=== PATIENT | female | born 1930 | race African-American/Black ===

== ENCOUNTER 2017-05-30 23:04 | Observation (INO) | payer MEDICARE, MEDICAID ==
[2017-05-30 23:37] LABS: #Eosinphils 0.2 thou/uL (0.0-0.7); #Lymphocytes 2.4 thou/uL (1.20-3.40); #Monocytes 1.4 thou/uL (0.11-0.59); #Neutrophils 5.8 thou/uL (1.40-6.50); %Basophils 0.3 % (0.0-1.0); %Eosinophils 2.2 % (0.0-10.0); %Lymphocytes 24.4 % (21.0-51.0); %Monocytes 14.5 % (0.0-10.0); Hematocrit 36.6 % (36.0-47.0); Mean Platelet Volume 9.1 fL (7.4-10.4); Red Blood Cell (RBC) Count 3.94 mill/uL (4.20-5.40); White Blood Cell (WBC) Count 9.9 thou/uL (4.8-10.8)
--- NOTE | 2017-05-30 23:55 | RAD ---
FRONTAL RADIOGRAPH CHEST PORTABLE UPRIGHT 05/30/17 COMPARISON: 12/31/16 HISTORY: Chest pain radiating into the left flank and abdomen. FINDINGS: There is a rounded density in the cardiophrenic angle on the left suggesting hiatal hernia. No pneum othorax, pleural fluid, focal consolidation or alveolar edema. There is elevation of the right rima diaphragm. IMPRESSION: No acute findings. POS: [facility]
[2017-05-30 23:59] LABS: ALT (SGPT) 20 U/L (8-55); AST (SGOT) 28 U/L (5-34); Alkaline Phosphatase 50 U/L (40-150); Anion Gap 16 mmol/L (10-20); BUN (Urea Nitrogen) 26 mg/dL (9.8-20.1); Bilirubin, Total 0.2 mg/dL (0.2-1.2); CK (CPK) 162 U/L (29-168); Calc. Creatinine Clearance 0 mL/min (70-130); Calcium 9.3 mg/dL (7.8-10.44); Carbon Dioxide 27 mmol/L (23-31); Chloride 100 mmol/L (98-107); Estimated GFR-MDRD 49; Globulin 2.9 g/dL (2.4-3.5); Lipase 27 U/L (8-78); Protein, Total 6.7 g/dL (6.0-8.3)
[2017-05-31 00:02] LABS: Troponin I Less than 0.010 ng/mL (< 0.028)
[2017-05-31] MEDS ORDERED: Nitroglycerin 0.4 MG TAB (25 Tab Bottle) ONE (01:02)
[2017-05-31] MEDS ORDERED: Nitroglycerin 2% Ointment 1 INCH/1 GM Packet ONE (01:02)
[2017-05-31] MEDS ORDERED: cefTRIAXone\\ROCEPHIN 1 GM VIAL ONE (01:31)
[2017-05-31] MEDS ORDERED: Azithromycin 500 MG VIAL ONE (02:09)
[2017-05-31 02:55] LABS: Troponin I 0.015 ng/mL (< 0.028)
[2017-05-31] MEDS ORDERED: Ondansetron HCl/PF 4 MG/2 ML Vial IVP PRN (03:13)
[2017-05-31] MEDS ORDERED: Ondansetron ODT 4 MG TAB SL PRN (03:13)
[2017-05-31] MEDS ORDERED: Acetaminophen 325 MG TAB PO PRN (03:13)
[2017-05-31 04:02] VITALS: BMI 35.2
[2017-05-31 06:52] LABS: Troponin I 0.015 ng/mL (< 0.028)
--- NOTE | 2017-05-31 07:57 | ULT ---
PRELIMINARY REPORT/[facility]/EMERGENCY AFTER HOURS PROCEDURE: EXAM: US Duplex Right Lower Extremity Veins CLINICAL HISTORY: 87 years old, female; Pain and signs and symptoms; Edema, localized; Lower extremity, right; Leg, up per; Prior surgery; Surgery date: 6+ months; Surgery type: Rt knee replacement - yrs ago TECHNIQUE: Real-time ultrasound scan of the veins of the right lower extremity with color Doppler flow, spectra l waveform analysis and compression. COMPARISON: No relevant prior studies available. FINDINGS: Deep veins: Unremarkable. No DVT in the visualized common femoral, femoral, proximal deep femoral or popliteal veins. The veins are compressible with normal color flow and augmentation. Superficial veins: Unremarkable. No thrombus in the visualized great saphenous vein. Soft tissues: No acute findings. No popliteal cyst. IMPRESSION: No deep venous thrombosis of the right lower extremity. Thank you for allowing us to participate in the care of your patient. Dictated and Authenticated by: Jon Barlow MD 05/31/2017 1:23 AM Central Time ([place] \T\ [place]) FINAL REPORT EMERGENCY AFTER HOURS VENOUS DOPPLER ULTRASOUND RIGHT LOWER EXTREMITY: Date: 05/31/17 HISTORY: 87-year-old with right lower extremity pain, localized edema. Previous history of surgery 6 months a go. TECHNIQUE: Multiple longitudinal and transverse images of the right lower extremity venous system obtained usin g a multihertz linear array transducer. Real-time, color flow, and spectral waveform Doppler analysi s was used to evaluate the right lower extremity venous system. FINDINGS: Areas of soft tissue edema seen in the region of the popliteal region. The right common femoral, sup erficial femoral, femora profunda, popliteal, posterior tibial, post-trifurcation, and greater saphe nous veins are all patent. No evidence of right lower extremity deep venous thrombosis seen. IMPRESSION: No evidence of right lower extremity deep venous thrombosis seen. I agree with the preliminary report given by Abby. POS: [facility]
--- NOTE | 2017-05-31 08:00 | CT ---
PRELIMINARY REPORT/[facility]/EMERGENCY AFTER HOURS PROCEDURE: EXAM: CT Angiography Chest With Intravenous Contrast CLINICAL HISTORY: 87 years old, female; Pain; Chest pain; R/O PE TECHNIQUE: Axial computed tomographic angiography images of the chest with intravenous contrast using pulmonary embolism protocol. Coronal reformatted images were created and reviewed. Oblique reformatted images were created and reviewed. CONTRAST: 100 mL of ISOVUE administered intravenously. COMPARISON: No relevant prior studies available. FINDINGS: Pulmonary arteries: No evidence of pulmonary embolism. Aorta: Normal caliber thoracic aorta without dissection or aneurysm. Lungs: Areas of atelectasis and/or consolidation within the inferior right lower lobe and right midd le lobe adjacent to the left hemidiaphragm. Areas of linear parenchymal scarring or subsegmental col lapse / atelectasis in each lung. Moderate hiatal hernia with adjacent compressive atelectasis within the medial left lower lobe. Pleural space: No pneumothorax. No pleural fluid collection. Heart: Coronary artery and aortic / mitral valve annulus calcification. No pericardial effusion. No evidence of RV dysfunction. Bones/joints: Spinal and shoulder degenerative changes. No acute fracture. No dislocation. Soft tissues: Unremarkable. Lymph nodes: No pathologically enlarged lymph nodes. Gallbladder and bile ducts: Status post cholecystectomy. Kidneys and ureters: Renal cysts. IMPRESSION: 1. No evidence of pulmonary embolism. 2. Areas of atelectasis and/or consolidation within the inferior right lower lobe and right middle l obe adjacent to the left hemidiaphragm. 3. Areas of linear parenchymal scarring or subsegmental collapse / atelectasis in each lung. 4. Moderate hiatal hernia with adjacent compressive atelectasis within the medial left lower lobe. Thank you for allowing us to participate in the care of your patient. Dictated and Authenticated by: Jon Barlow MD 05/31/2017 1:01 AM Central Time ([place] \T\ [place]) FINAL REPORT EMERGENCY AFTER HOURS CT PULMONARY ANGIOGRAM WITH IV CONTRAST AND 3D POSTPROCESSING: Date: 05/31/17 IMPRESSION: I agree with the preliminary report given by Abby. POS: [facility]
[2017-05-31] MEDS ORDERED: Mag-Al Plus 1200 MG/1200 MG/120 MG/30 ML UDCUP PO PRN (08:59)
[2017-05-31] MEDS ORDERED: Aspirin 325 MG TAB PO SCH (09:00)
[2017-05-31] MEDS: Pantoprazole 40 MG GRANULES PACKET PO SCH (09:07)
[2017-05-31] MEDS ORDERED: cloNIDine HCl 0.1 MG TAB PO PRN (09:58)
[2017-05-31] MEDS ORDERED: Nitroglycerin 0.4 MG TAB (25 Tab Bottle) SL PRN (09:58)
[2017-05-31] MEDS ORDERED: ISOVUE-370 76%-LOCM 1 ML ONE (10:41)
--- NOTE | 2017-05-31 10:48 | ULT ---
ULTRASOUND WITH DOPPLER DUPLEX VENOUS LOWER EXTREMITY LEFT: HISTORY: 87-year-old female with left lower extremity pain. TECHNIQUE: Color flow Doppler, spectral waveform analysis of pulsed Doppler, and doherty-scale imaging with compre ssion and augmentation, were used to evaluate the left common femoral, femoral, popliteal, posterior tibial, and superficial femoral, veins; and the proximal portions of the profunda femoral and great er saphenous, veins. FINDINGS: There is normal compressibility, demonstration of blood flow by color Doppler and pulsed Doppler, an d response to augmentation, in all interrogated veins. IMPRESSION: Negative. No deep vein thrombosis in the left lower extremity. simeon POS: [facility]
--- NOTE | 2017-05-31 11:02 | RAD ---
TWO VIEWS LEFT HIP: History: Hip pain. FINDINGS: AP and frogleg views of the left hip obtained. There is no evidence of left hip fractures, subluxati ons, or bony lesions. IMPRESSION: Normal AP and frogleg views left hip. POS: [facility]
[2017-05-31] MEDS ORDERED: Gabapentin 300 MG CAP PO SCH (15:00)
[2017-05-31] MEDS: Gabapentin 100 MG CAP PO SCH ×2 (16:01→20:10)
[2017-05-31] MEDS ORDERED: traMADol HCl 50 MG TAB PO PRN ×2 (16:24→16:30)
[2017-05-31] MEDS: Morphine Sulfate 2 MG/ML SYRINGE SLOW IVP PRN (20:11)
[2017-06-01] MEDS: Morphine Sulfate 2 MG/ML SYRINGE SLOW IVP PRN (06:16)
[2017-06-01] MEDS ORDERED: ANASTROZOLE 1 MG PO SCH (09:00)
[2017-06-01] MEDS: Furosemide 20 MG TAB PO SCH (09:04)
[2017-06-01] MEDS: Atenolol 25 MG TAB PO SCH (09:04)
[2017-06-01] MEDS: Fish Oil 1,000 MG CAP PO SCH (09:04)
[2017-06-01] MEDS: Pantoprazole 40 MG GRANULES PACKET PO SCH (09:05)
[2017-06-01] MEDS: Gabapentin 100 MG CAP PO SCH ×3 (09:05→20:19)
[2017-06-01] MEDS: Anastrozole 1 MG TAB PO SCH (09:05)
[2017-06-01] MEDS: cloNIDine HCl 0.1 MG TAB PO SCH (09:05)
[2017-06-01] MEDS ORDERED: Acetaminophen/Codeine 30-300mg Tablet PO PRN (13:47)
--- NOTE | 2017-06-01 13:51 | PDOC.PN ---
- Subjective Encounter Start Date: 06/01/17 Encounter Start Time: 08:49 Subjective: chronic leg pain -: no fever -: no compliant - Objective MAR Reviewed: Yes Vital Signs & Weight: Vital Signs (12 hours) Temp Pulse Pulse Resp BP BP Pulse Ox 06/01/17 12:00 98.9 F 69 20 144/65 H 92 L 06/01/17 10:55 66 120/53 L 06/01/17 09:04 66 06/01/17 08:25 98.0 F 66 18 166/70 H 93 L 06/01/17 07:24 97.8 F 64 18 06/01/17 03:12 97.8 F 64 18 132/59 L 94 L Weight Weight 159 lb 11.2 oz I&O: 05/31/17 06/01/17 06/02/17 06:59 06:59 06:59 Intake Total 1200 Balance 1200 Result Diagrams: 05/30/17 23:27 05/30/17 23:27 Radiology Reviewed by me: Yes EKG Reviewed by me: No Phys Exam - Physical Examination Constitutional: NAD HEENT: PERRLA, moist MMs, oral pharynx no lesions Neck: no nodes, no JVD Respiratory: no wheezing, no rales Cardiovascular: RRR, no significant murmur Gastrointestinal: soft, non-tender Musculoskeletal: no edema no trauma no erythema or problem in range of movement Neurological: non-focal Lymphatic: no nodes Psychiatric: normal affect Skin: no rash Dx/Plan (1) Acute exacerbation of chronic low back pain Code(s): M54.5 - LOW BACK PAIN; G89.29 - OTHER CHRONIC PAIN Status: Chronic Comment: 1. Tylenol #3 for pain PRN 2. X ray lower ext. no abnormalities 3. Doppler WNL (2) Hypertension Code(s): I10 - ESSENTIAL (PRIMARY) HYPERTENSION Status: Chronic Qualifiers: Hypertension type: essential hypertension Qualified Code(s): I10 - Essential (primary) hypertension Comment: 1. continue home medication (3) GERD (gastroesophageal reflux disease) Code(s): K21.9 - GASTRO-ESOPHAGEAL REFLUX DISEASE WITHOUT ESOPHAGITIS Status: Chronic Comment: 1. GI prophylaxis 2. monitor patient - Plan cont current plan of care, PT/OT, DVT proph w/SCDs 1. Plan to discharge to [facility] nursing -: 2. monitor patient -: 3. normal diet * .
--- NOTE | 2017-06-02 08:14 | PDOC.PN ---
- Subjective Encounter Start Date: 06/02/17 (t) Encounter Start Time: 08:13 Subjective: doing well no compliant -: no event overnight - Objective MAR Reviewed: Yes Vital Signs & Weight: Vital Signs (12 hours) Temp Pulse Resp BP Pulse Ox 06/02/17 04:00 98.4 F 71 18 179/74 H 06/02/17 00:00 98.2 F 64 18 137/64 93 L 06/01/17 20:58 98.7 F 72 18 06/01/17 20:32 98.7 F 72 18 134/86 92 L Weight Weight 159 lb 11.2 oz I&O: 06/01/17 06/02/17 06/03/17 06:59 06:59 06:59 Intake Total 1200 1350 Balance 1200 1350 Result Diagrams: 05/30/17 23:27 05/30/17 23:27 Radiology Reviewed by me: Yes EKG Reviewed by me: No Phys Exam - Physical Examination Constitutional: NAD HEENT: PERRLA, moist MMs, sclera anicteric Neck: no nodes, no JVD, supple Respiratory: no wheezing, no rales Cardiovascular: RRR, no significant murmur Gastrointestinal: soft, non-tender Musculoskeletal: no edema, pulses present Neurological: non-focal Lymphatic: no nodes Dx/Plan (1) Acute exacerbation of chronic low back pain Code(s): M54.5 - LOW BACK PAIN; G89.29 - OTHER CHRONIC PAIN Status: Chronic Comment: 1. Tylenol #3 for pain PRN 2. X ray lower ext. no abnormalities 3. Doppler WNL (2) Hypertension Code(s): I10 - ESSENTIAL (PRIMARY) HYPERTENSION Status: Chronic Qualifiers: Hypertension type: essential hypertension Qualified Code(s): I10 - Essential (primary) hypertension Comment: 1. continue home medication (3) GERD (gastroesophageal reflux disease) Code(s): K21.9 - GASTRO-ESOPHAGEAL REFLUX DISEASE WITHOUT ESOPHAGITIS Status: Chronic Comment: 1. GI prophylaxis 2. monitor patient - Plan 1. Plan for discharge today -: 2. continue pain medication -: 3. continue home medication -: 4. follow up with PCP for continue care * .
[2017-06-02 08:19] VITALS: BP 177/73; TEMP 98.6
[2017-06-02] MEDS: cloNIDine HCl 0.1 MG TAB PO SCH (08:50)
[2017-06-02] MEDS: Pantoprazole 40 MG GRANULES PACKET PO SCH (08:50)
[2017-06-02] MEDS: Furosemide 20 MG TAB PO SCH (08:51)
[2017-06-02] MEDS: Gabapentin 100 MG CAP PO SCH (08:51)
[2017-06-02] MEDS: Anastrozole 1 MG TAB PO SCH (08:51)
[2017-06-02] MEDS: Atenolol 25 MG TAB PO SCH (08:51)
[2017-06-02] MEDS: Fish Oil 1,000 MG CAP PO SCH (08:51)
--- NOTE | 2017-06-02 12:18 | PDOC.EVN ---
Event Note - Event Note Event Note: Discharge dictation number [id number]
--- NOTE | 2017-06-06 15:30 | HP ---
HISTORY OF PRESENT ILLNESS: Please note that this is a late entry for history and physical and the patient was assigned to me to dictate the history and physical. It is unclear whether or not I actu ally remember seeing this patient, but Ms. Rivera is an 87-year-old female who presented to the emerg ency room with complaints of chest pain, which was sharp in nature and stabbing. The pain was rated at 5/10 and the symptoms started suddenly and it has not been in relationship to exertion and she a lso had a cough associated with it, which had been intermittent. She was evaluated in the ER and gi hugo her history of previous coronary artery disease. The decision was made to admit her to the hosp ital for possible acute coronary syndrome and also possible pneumonia as well. The review of system s is unobtainable as unfortunately this is a late entry and I am not able to ask the patient about t he symptoms. PAST MEDICAL HISTORY: The past medical history and further are taken from the emergency room record s and include history of coronary artery disease, congestive heart failure, diabetes mellitus type 2 , hypertension and kidney stones. PAST SURGICAL HISTORY: History of lithotripsy and a right breast lumpectomy, history of a stent gabriela cement, pacemaker placement and then removal, cholecystectomy and right knee surgery. ALLERGIES: HYDRALAZINE, NORCO, REGLAN and STADOL. SOCIAL HISTORY: She is a nonsmoker and nondrinker. FAMILY HISTORY: Unknown. MEDICATIONS: Her medications are taken from emergency room records include clonidine 0.1 mg twice a day, atenolol 25 mg daily, Nexium 40 mg daily, benzonatate 100 mg p.r.n., Ambien 5 mg daily and nit roglycerin 0.4 sublingual p.r.n. PHYSICAL EXAMINATION: GENERAL: She is alert and oriented. VITAL SIGNS: Blood pressure is 155/62, heart rate 63, respiratory rate of 18 and temperature was 98 .8. HEENT: Pupils are equal, round and reactive. Extraocular muscles are intact. Sclerae are anicteri c. Throat; no erythema, no exudates. NECK: No adenopathy, no bruits. LUNGS: Clear. No wheezing, no rales. CARDIOVASCULAR: She had a normal S1 and S2. No S3 or S4. No murmurs, clicks or rubs. ABDOMEN: Soft, nontender and nondistended. Positive for bowel sounds. No rebound, no guarding. EXTREMITIES: There is no edema. NEUROLOGIC: The exam is nonfocal. ASSESSMENT AND PLAN: This is an 87-year-old female who presented to the emergency room with chest p ain. She is being admitted for possible acute coronary syndrome, which we will continue to rule her out and consider a cardiology consultation if indicated and also we will cover her with IV antibiot ics given the possible pneumonia as well.
--- NOTE | 2017-06-24 16:08 | EKG ---
Test Reason : Blood Pressure : / mmHG Vent. Rate : 073 BPM Atrial Rate : 073 BPM P-R Int : 184 ms QRS Dur : 104 ms QT Int : 424 ms P-R-T Axes : 036 017 041 degrees QTc Int : 467 ms Sinus rhythm with Premature atrial complexes Lateral ST depression Abnormal ECG Confirmed by ALEXA FAITH D.O. ([id number]), field map editor LYNNETTE RODRIGUEZ ([id number]) on 06/24/2017 4:08:35 PM Referred By: Confirmed By:ALEXA FAITH D.O.
== END 2017-06-02 11:20 ==
LOC: ERS 23:04 → 2SE 05-31 01:31
PROVIDERS: ADMIT Internal Medicine; ATTEND Internal Medicine
DX: G89.4 Chronic pain syndrome (principal); M79.662 Pain in left lower leg; M79.661 Pain in right lower leg; R54 Age-related physical debility; R07.9 Chest pain, unspecified; M54.5 Low back pain; I10 Essential (primary) hypertension; K21.9 Gastro-esophageal reflux disease without esophagitis; Z79.899 Other long term (current) drug therapy; I25.10 Atherosclerotic heart disease of native coronary artery without angina pectoris; Z95.5 Presence of coronary angioplasty implant and graft
CPT/HCPCS: 71010; 71275; 73502; 80053; 82550; 82553; 82962; 83690; 84484 ×3; 85025; 85379; 93005; 93970; 96365; 96367; 96375; 96376; 97139 ×3; 99285; G0378 ×2; G8978; G8979; G8987; G8988; 36415; 36416; A4216; J0456; J0696; J2270